=== PATIENT | female | born 1960 | race Caucasian/White ===

== ENCOUNTER 2024-06-10 08:49 | Inpatient (IN) | payer BC, MEDICARE, OTHER ==
[2024-06-10 10:01] LABS: ALT (SGPT) 17 U/L (8-55); AST (SGOT) 21 U/L (5-34); Alkaline Phosphatase 83 U/L (40-110); Anion Gap 13 mmol/L (10-20); BUN (Urea Nitrogen) 53 mg/dL (9.8-20.1); Bilirubin, Total 0.2 mg/dL (0.2-1.2); Calc. Creatinine Clearance 0 mL/min (70-130); Calcium 8.8 mg/dL (7.8-10.44); Carbon Dioxide 16 mmol/L (23-31); Chloride 112 mmol/L (98-107); Estimated GFR 17; Globulin 2.8 g/dL (2.4-3.5); Glucose 154 mg/dL (80-115); Protein, Total 5.8 g/dL (5.8-8.1); Sodium 135 mmol/L (136-145)
[2024-06-10 10:17] LABS: #Basophils Less than 0.03 10x3/uL (0.0-0.2); %Basophils 0.3 % (0.0-1.0); %Eosinophils 1.2 % (0.0-10.0); %Lymphocytes 10.7 % (21.0-51.0); %Monocytes 4.9 % (0.0-10.0); %Neutrophils 80.9 % (42.0-75.0); Hematocrit 29.5 % (36.0-47.0); Hemoglobin 8.6 g/dL (12.0-16.0); Mean Corpuscular HGB CONC 29.2 g/dL (32.0-36.0); Mean Corpuscular Hemoglobin 29.1 pg (27.0-31.0); Mean Corpuscular Volume 99.7 fL (78.0-98.0); Mean Platelet Volume 9.2 fL (7.4-10.4); Platelet Count 210 10x3/uL (130-400); RBC Distribution Width 14.3 % (11.5-14.5); Red Blood Cell (RBC) Count 2.96 mill/uL (4.20-5.40)
[2024-06-10 10:41] LABS: Troponin I 0.019 ng/mL (< 0.028)
[2024-06-10 10:44] LABS: Analyzer IN Cardio ER; Base Excess -6.9 mEq/L (-2.0 to +3.0); Chloride (VBG) 108 mmol/L (98-106); Hematocrit-VBG 29 % (36.0-47.0); Hemoglobin (Hb) 9.9 g/dL (11.7-16.1); Sodium 135 mmol/L (133-146); pH (venous) 7.252 (7.32-7.43)
[2024-06-10 10:55] LABS: PTT 25.2 sec (22.9-36.1); Prothrombin Time 13.2 sec (12.0-14.7)
[2024-06-10 11:21] LABS: ALT (SGPT) 19 U/L (8-55); AST (SGOT) 26 U/L (5-34); Albumin 3.3 g/dL (3.4-4.8); Alkaline Phosphatase 89 U/L (40-110); Anion Gap 10 mmol/L (10-20); BUN (Urea Nitrogen) 52 mg/dL (9.8-20.1); Bilirubin, Total 0.2 mg/dL (0.2-1.2); Calc. Creatinine Clearance 0 mL/min (70-130); Calcium 9.2 mg/dL (7.8-10.44); Carbon Dioxide 19 mmol/L (23-31); Chloride 110 mmol/L (98-107); Estimated GFR 17; Globulin 3.1 g/dL (2.4-3.5); Glucose 171 mg/dL (80-115); Protein, Total 6.4 g/dL (5.8-8.1); Sodium 133 mmol/L (136-145)
[2024-06-10 11:50] LABS: #Basophils 0.04 10x3/uL (0.0-0.2); %Basophils 0.3 % (0.0-1.0); %Eosinophils 0.6 % (0.0-10.0); %Lymphocytes 4.1 % (21.0-51.0); %Monocytes 2.9 % (0.0-10.0); %Neutrophils 91.1 % (42.0-75.0); Hemoglobin 9.2 g/dL (12.0-16.0); Mean Corpuscular HGB CONC 30.7 g/dL (32.0-36.0); Mean Corpuscular Hemoglobin 28.8 pg (27.0-31.0); Mean Platelet Volume 8.7 fL (7.4-10.4); Platelet Count 262 10x3/uL (130-400); RBC Distribution Width 14.3 % (11.5-14.5); Red Blood Cell (RBC) Count 3.19 mill/uL (4.20-5.40)
[2024-06-10] MEDS ORDERED: Iopamidol-370 76% 500 ML MDV (1 ML CHARGE) ONE ×2 (12:05)
[2024-06-10] MEDS ORDERED: Dextrose 50% Abboject 50 ML SYRINGE ONE (12:19)
[2024-06-10] MEDS ORDERED: Albuterol 2.5 MG (3 mL) NEB ONE (12:23)
[2024-06-10] MEDS ORDERED: Insulin Regular, Human 100 UNIT/ML 10 ML VIAL ONE (12:23)
[2024-06-10] MEDS ORDERED: Senokot S 8.6-50 MG TAB PO PRN (12:25)
[2024-06-10] MEDS ORDERED: Calcium Carbonate 500 MG ChewTAB PO PRN (12:25)
[2024-06-10] MEDS ORDERED: Dextrose 50% Abboject 50 ML SYRINGE SLOW IVP PRN (12:30)
[2024-06-10] MEDS ORDERED: Dextrose 5% in Water 1,000 ML IV PRN (12:30)
[2024-06-10] MEDS ORDERED: Glucagon 1 MG/ML KIT IM PRN (12:30)
[2024-06-10] MEDS ORDERED: CALCIUM GLUC 1 GM/NS 50 ML IV Bag ONE (12:49)
[2024-06-10] MEDS: Dextrose 5 % And 0.9 % NaCl 1,000 ML IV SCH (17:47)
[2024-06-10 17:56] VITALS: BMI 41.7
[2024-06-10] MEDS: Albumin 25% 25 GM (100 mL) BOT IVPB SCH ×2 (18:01→18:07)
[2024-06-10] MEDS: LOKELMA 10 GM PACKET PO SCH (18:46)
[2024-06-10 19:27] LABS: Anion Gap 13 mmol/L (10-20); BUN (Urea Nitrogen) 47 mg/dL (9.8-20.1); Calc. Creatinine Clearance 35 mL/min (70-130); Calcium 9.4 mg/dL (7.8-10.44); Carbon Dioxide 16 mmol/L (23-31); Chloride 108 mmol/L (98-107); Estimated GFR 17; Glucose 245 mg/dL (80-115); Potassium 6.2 mmol/L (3.5-5.1); Sodium 131 mmol/L (136-145)
[2024-06-10] MEDS: Acetaminophen 325 MG TAB PO PRN (20:18)
[2024-06-10] MEDS: Sodium Polystyrene Sulfonate 15 GM (60 mL) BOT PO SCH (20:18)
[2024-06-10] MEDS: Mirtazapine 30 MG TAB PO SCH (20:18)
[2024-06-10] MEDS: Atorvastatin Calcium 40 MG TAB PO SCH (20:18)
[2024-06-10] MEDS ORDERED: Sodium Bicarb 50 mEq/50 ML VIAL IVP SCH (22:15)
[2024-06-10] MEDS: Sodium Bicarb 50 MEQ/50 ML Abboject 8.4% SYRINGE IVP SCH (22:19)
[2024-06-10] MEDS: Methimazole 5 MG TAB PO SCH (22:20)
[2024-06-10] MEDS: Insulin Lispro 100 UNIT/ML 10 ML VIAL SC PRN (22:22)
[2024-06-10] MEDS: Sodium Bicarb 50 mEq/50 ML VIAL IVP SCH (23:02)
[2024-06-11] MEDS: traMADol HCl 50 MG TAB PO SCH (03:57)
[2024-06-11 04:44] LABS: #Basophils Less than 0.03 10x3/uL (0.0-0.2); #Eosinophils Less than 0.03 10x3/uL (0.0-0.7); %Basophils 0.2 % (0.0-1.0); %Eosinophils 0.5 % (0.0-10.0); %Lymphocytes 13.5 % (21.0-51.0); %Monocytes 6.2 % (0.0-10.0); %Neutrophils 79.4 % (42.0-75.0); Hematocrit 23.5 % (36.0-47.0); Hemoglobin 7.2 g/dL (12.0-16.0); Mean Corpuscular HGB CONC 30.6 g/dL (32.0-36.0); Mean Corpuscular Hemoglobin 28.2 pg (27.0-31.0); Mean Corpuscular Volume 92.2 fL (78.0-98.0); Mean Platelet Volume 8.7 fL (7.4-10.4); Platelet Count 207 10x3/uL (130-400); RBC Distribution Width 14.2 % (11.5-14.5); Red Blood Cell (RBC) Count 2.55 mill/uL (4.20-5.40)
[2024-06-11 06:06] LABS: ALT (SGPT) 20 U/L (8-55); AST (SGOT) 33 U/L (5-34); Albumin 3.8 g/dL (3.4-4.8); Alkaline Phosphatase 71 U/L (40-110); Anion Gap 12 mmol/L (10-20); BUN (Urea Nitrogen) 42 mg/dL (9.8-20.1); Bilirubin, Total 0.2 mg/dL (0.2-1.2); Calc. Creatinine Clearance 42 mL/min (70-130); Calcium 8.5 mg/dL (7.8-10.44); Carbon Dioxide 24 mmol/L (23-31); Chloride 106 mmol/L (98-107); Estimated GFR 21; Globulin 2.5 g/dL (2.4-3.5); Glucose 230 mg/dL (80-115); Magnesium 2.1 mg/dL (1.6-2.6); Potassium 4.2 mmol/L (3.5-5.1); Protein, Total 6.3 g/dL (5.8-8.1); Sodium 138 mmol/L (136-145)
[2024-06-11 10:38] LABS: #Basophils Less than 0.03 10x3/uL (0.0-0.2); %Eosinophils 1.3 % (0.0-10.0); %Lymphocytes 14.4 % (21.0-51.0); %Monocytes 5.4 % (0.0-10.0); %Neutrophils 78.1 % (42.0-75.0); Hematocrit 21.8 % (36.0-47.0); Hemoglobin 6.6 g/dL (12.0-16.0); Mean Corpuscular HGB CONC 30.3 g/dL (32.0-36.0); Mean Corpuscular Hemoglobin 28.6 pg (27.0-31.0); Mean Corpuscular Volume 94.4 fL (78.0-98.0); Mean Platelet Volume 8.3 fL (7.4-10.4); Platelet Count 161 10x3/uL (130-400); RBC Distribution Width 14.4 % (11.5-14.5); Red Blood Cell (RBC) Count 2.31 mill/uL (4.20-5.40)
[2024-06-11] MEDS: Insulin Lispro 100 UNIT/ML 10 ML VIAL SC PRN (13:27)
[2024-06-11] MEDS: Morphine 2 MG/ML VIAL SLOW IVP PRN (13:50)
[2024-06-11 21:36] LABS: Hematocrit 26.3 % (36.0-47.0); Hemoglobin 8.3 g/dL (12.0-16.0)
[2024-06-11] MEDS: Methimazole 5 MG TAB PO SCH (22:10)
[2024-06-11] MEDS: HYDROcodone/Acetaminophen 7.5/325 mg Tablet PO SCH (23:52)
[2024-06-12 04:30] LABS: #Basophils Less than 0.03 10x3/uL (0.0-0.2); %Basophils 0.5 % (0.0-1.0); %Eosinophils 2.9 % (0.0-10.0); %Lymphocytes 17.9 % (21.0-51.0); %Monocytes 6.3 % (0.0-10.0); %Neutrophils 71.7 % (42.0-75.0); Hematocrit 28.2 % (36.0-47.0); Hemoglobin 8.6 g/dL (12.0-16.0); Mean Corpuscular HGB CONC 30.5 g/dL (32.0-36.0); Mean Corpuscular Hemoglobin 28.8 pg (27.0-31.0); Mean Corpuscular Volume 94.3 fL (78.0-98.0); Mean Platelet Volume 8.5 fL (7.4-10.4); Platelet Count 205 10x3/uL (130-400); RBC Distribution Width 14.9 % (11.5-14.5); Red Blood Cell (RBC) Count 2.99 mill/uL (4.20-5.40)
[2024-06-12 04:55] LABS: Anion Gap 12 mmol/L (10-20); BUN (Urea Nitrogen) 28 mg/dL (9.8-20.1); Calc. Creatinine Clearance 63 mL/min (70-130); Calcium 9.2 mg/dL (7.8-10.44); Carbon Dioxide 23 mmol/L (23-31); Chloride 108 mmol/L (98-107); Estimated GFR 34; Glucose 134 mg/dL (80-115); Iron 40 ug/dL (50-170); Iron Binding Capacity, Total 245 mcg/dL (265-497); Potassium 4.3 mmol/L (3.5-5.1); Sodium 139 mmol/L (136-145)
[2024-06-12] MEDS: HYDROcodone/Acetaminophen 7.5/325 mg Tablet PO PRN (05:03)
[2024-06-12 05:15] LABS: Ferritin 116.09 ng/mL (10-291); Thyroid Stimulating Hormone 1.1678 uIU/mL (0.35-4.94)
[2024-06-12] MEDS: Ondansetron PF 4 MG/2 ML Vial IVP PRN (13:08)
[2024-06-12] MEDS: FLU (Fluad Triv) TS24-25 (65UP)/MF59C/PF 45 MCG/0.5 ML Syringe IM ONE (13:14)
[2024-06-13 06:46] LABS: Anion Gap 14 mmol/L (10-20); BUN (Urea Nitrogen) 22 mg/dL (9.8-20.1); Calc. Creatinine Clearance 69 mL/min (70-130); Calcium 9.4 mg/dL (7.8-10.44); Carbon Dioxide 20 mmol/L (23-31); Chloride 108 mmol/L (98-107); Estimated GFR 38; Glucose 148 mg/dL (80-115); Sodium 137 mmol/L (136-145)
[2024-06-13 07:42] LABS: #Basophils Less than 0.03 10x3/uL (0.0-0.2); %Basophils 0.2 % (0.0-1.0); %Eosinophils 4.7 % (0.0-10.0); %Lymphocytes 12.9 % (21.0-51.0); %Monocytes 6.6 % (0.0-10.0); %Neutrophils 74.9 % (42.0-75.0); Hematocrit 26.9 % (36.0-47.0); Hemoglobin 8.6 g/dL (12.0-16.0); Mean Corpuscular Hemoglobin 28.6 pg (27.0-31.0); Mean Corpuscular Volume 89.4 fL (78.0-98.0); Mean Platelet Volume 8.2 fL (7.4-10.4); Platelet Count 185 10x3/uL (130-400); RBC Distribution Width 13.8 % (11.5-14.5); Red Blood Cell (RBC) Count 3.01 mill/uL (4.20-5.40)
[2024-06-13] MEDS ORDERED: Senokot S 8.6-50 MG TAB PO PRN (13:45)
[2024-06-14 04:47] LABS: #Basophils 0.03 10x3/uL (0.0-0.2); %Basophils 0.7 % (0.0-1.0); %Eosinophils 4.2 % (0.0-10.0); %Lymphocytes 16.5 % (21.0-51.0); %Monocytes 7.2 % (0.0-10.0); %Neutrophils 70.7 % (42.0-75.0); Hematocrit 26.1 % (36.0-47.0); Hemoglobin 8.4 g/dL (12.0-16.0); Mean Corpuscular HGB CONC 32.2 g/dL (32.0-36.0); Mean Platelet Volume 8.5 fL (7.4-10.4); Platelet Count 201 10x3/uL (130-400); RBC Distribution Width 13.5 % (11.5-14.5)
[2024-06-14 05:11] LABS: Anion Gap 10 mmol/L (10-20); BUN (Urea Nitrogen) 24 mg/dL (9.8-20.1); Calc. Creatinine Clearance 72 mL/min (70-130); Calcium 9.2 mg/dL (7.8-10.44); Carbon Dioxide 23 mmol/L (23-31); Chloride 107 mmol/L (98-107); Estimated GFR 40; Glucose 164 mg/dL (80-115); Potassium 4.7 mmol/L (3.5-5.1); Sodium 135 mmol/L (136-145)
[2024-06-14 09:51] VITALS: BP 172/77; TEMP 97.7
[2024-06-14 10:33] LABS: Potassium (VBG) 6.11 mmol/L (3.70-5.30)
== END 2024-06-14 12:59 | disposition home or self-care (01) | DRG 682 ==
LOC: ERS 08:49 → SUATTDRO 08:49 → ERHOLD 12:25 → 2NO 17:26
PROVIDERS: ADMIT Internal Medicine; ATTEND Internal Medicine
PROC: 4A00X4Z Measurement of Central Nervous Electrical Activity, External Approach (ICD-10-PCS; principal; 2024-06-11)
DX: N17.9 Acute kidney failure, unspecified (principal); G93.41 Metabolic encephalopathy; E87.20 Acidosis, unspecified; E87.5 Hyperkalemia; N18.30 Chronic kidney disease, stage 3 unspecified; I12.9 Hypertensive chronic kidney disease with stage 1 through stage 4 chronic kidney disease, or unspecified chronic kidney disease; D63.1 Anemia in chronic kidney disease; D50.9 Iron deficiency anemia, unspecified; Z79.899 Other long term (current) drug therapy; Z79.4 Long term (current) use of insulin; E11.22 Type 2 diabetes mellitus with diabetic chronic kidney disease; F32.A Depression, unspecified; F17.290 Nicotine dependence, other tobacco product, uncomplicated; R55 Syncope and collapse; E21.3 Hyperparathyroidism, unspecified; Z98.890 Other specified postprocedural states; E03.9 Hypothyroidism, unspecified
CPT/HCPCS: 36415; 36416; 36430; 70450; 71045; 71250; 71260; 72125; 72170; 74177; 80048; 80053; 82728; 82805; 83540; 83550; 83615; 83735; 84443; 84484; 85025; 85046; 85610; 85730; 86850; 86870; 86900; 86901; 93005; 93306; 95700; 95712; 95957; 96374; 96375; J0613; J1815; J2272; J2405; J7042; J7611; J7999; P9016; P9047; Q9967